=== PATIENT | female | born 2000 | race American Indian/Alaskan Native ===

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

== ENCOUNTER 2022-09-05 19:11 | Emergency (ER) | payer MEDICAID | END 2022-09-05 22:52 | disposition home or self-care (01) | LOC: JD.ED 19:11 | DX: K80.50 Calculus of bile duct without cholangitis or cholecystitis without obstruction (principal); I10 Essential (primary) hypertension; Z72.0 Tobacco use | CPT/HCPCS: 36415; 76705; 76705-26; 80053; 83690; 85025; 86140; 99284 ==

== ENCOUNTER 2022-09-12 08:29 | Day surgery (SDC) | payer MEDICAID ==
[~2022-09-12 08:29] MED LIST: Lactated Ringers 1,000 ML IV SCH; Lidocaine 1%/Sod Bicarbonate in NS 8.4% 1 ML Syringe IDERM PRN; Sodium Chloride 0.9% 10 ML Syringe FLUSH PRN; Sodium Chloride 0.9% 10 ML Syringe FLUSH SCH
[2022-09-12] MEDS ORDERED: Iopamidol 612 MG/ML 50 ML SDV ONE (09:45)
[2022-09-12] MEDS ORDERED: Sodium Chloride 0.9% 50 ML SDV ONE (09:46)
[2022-09-12] MEDS ORDERED: fentaNYL 100 MCG/2 ML SDV ONE ×2 (10:05→10:58)
[2022-09-12] MEDS ORDERED: Midazolam 1 MG/ML 2 ML SDV ONE (10:05)
[2022-09-12] MEDS ORDERED: Propofol 200 MG/20 ML SDV ONE (10:06)
[2022-09-12] MEDS ORDERED: Rocuronium 50 MG/5 ML Vial ONE ×2 (10:15→11:59)
[2022-09-12] MEDS ORDERED: ceFAZolin 2 GM Vial ONE (10:29)
[2022-09-12] MEDS: Lidocaine 1% with EPINEPHrine 1:100,000 20 ML MDV ONE ×2 (10:37→12:32)
[2022-09-12] MEDS: Bupivacaine 0.5%/EPINEPHrine 1:200,000 50 ML MDV ONE ×2 (10:37→12:32)
[2022-09-12] MEDS ORDERED: Dexamethasone 4 MG/ML 5 ML MDV ONE (10:58)
[2022-09-12] MEDS ORDERED: Ondansetron 4 MG/2 ML SDV IVPUSH PRN (11:09)
[2022-09-12] MEDS ORDERED: Lactated Ringers 1,000 ML ONE ×2 (11:36)
[2022-09-12] MEDS ORDERED: Sugammadex Sodium 200 MG/2 ML VIAL ONE (11:41)
[2022-09-12] MEDS ORDERED: Ketorolac 15 MG/ML SDV ONE (11:59)
[2022-09-12] MEDS ORDERED: Lidocaine 1% 4 ML ONE (11:59)
[2022-09-12] MEDS ORDERED: Ondansetron 4 MG/2 ML SDV ONE (11:59)
[2022-09-12] MEDS ORDERED: Acetaminophen/HYDROcodone 325-5 MG Tab PO PRN (12:08)
[2022-09-12] MEDS: fentaNYL 100 MCG/2 ML SDV IVPUSH PRN ×2 (12:33→12:41)
[2022-09-12] MEDS: HYDROmorphone 0.5 MG/0.5 ML Syringe IVPUSH PRN ×2 (12:34→12:45)
== END 2022-09-12 15:00 | disposition home or self-care (01) ==
LOC: JD.SDS 08:29
PROVIDERS: ATTEND Surgery
DX: K80.12 Calculus of gallbladder with acute and chronic cholecystitis without obstruction (principal); J45.909 Unspecified asthma, uncomplicated; I10 Essential (primary) hypertension; E05.90 Thyrotoxicosis, unspecified without thyrotoxic crisis or storm; F17.210 Nicotine dependence, cigarettes, uncomplicated; Z79.899 Other long term (current) drug therapy
CPT/HCPCS: 47562; 81025; J0690; J1100; J1170; J1885; J2250; J2405; J2704; J3010; J3490; J7120; Q9967; 00790